=== PATIENT | female | born 1945 | race Caucasian/White ===

== ENCOUNTER 2017-07-16 17:36 | Emergency (ER) | payer MEDICARE ==
[2017-07-16 20:17] LABS: BASOPHILS 0.2 % (0-2); EOSINOPHILS 0.2 % (0-7); HEMATOCRIT 35.9 % (36.0-48.0); HEMOGLOBIN 12.1 g/dL (12-16); IMMATURE GRANULOCYTES 0.2 % (0-5); MCH 28.3 pg (26.0-34.0); MCHC 33.7 g/dL (31.0-37.0); MCV 84.1 fL (80.0-100.0); MEAN PLATELET VOLUME 10.1 fL (7.4-10.4); MONOCYTES 4.9 % (2-11); NEUTROPHILS 68.5 % (40-80); PLATELET COUNT 316 10x3/uL (130-400); RBC 4.27 10x6/uL (4.00-5.40); RDW 12.9 % (11.5-14.5); WBC 12.7 10x3/uL (4.8-10.8)
[2017-07-16 20:34] LABS: ALBUMIN 3.3 g/dL (3.4-5.0); BILIRUBIN - TOTAL 0.39 mg/dL (0.2-1.3); CALCIUM 9.9 mg/dL (8.5-10.1); CARBON DIOXIDE 29.5 mmol/L (21.0-32.0); CREATININE - SERUM 1.8 mg/dL (0.6-1.3); POTASSIUM - SERUM 4.5 mmol/L (3.5-5.1); PROTEIN - SERUM 8.9 g/dL (6.4-8.2)
[2017-07-16 20:37] LABS: APPEARANCE CLOUDY (CLEAR); BILIRUBIN NEGATIVE (NEGATIVE); COLOR YELLOW (YELLOW); GLUCOSE 1000 mg/dL (NEGATIVE); KETONE NEGATIVE (NEGATIVE); NITRITE POSITIVE (NEGATIVE); PROTEIN 2+ mg/dL (NEGATIVE); SPECIFIC GRAVITY 1.005 (1.005-1.020); UROBILINOGEN NORMAL (NORMAL)
[2017-07-16 20:41] LABS: BACTERIA MANY /hpf (NONE SEEN); RED CELLS - URINE 0-5 /hpf (0-5); WHITE CELLS - URINE 0-5 /hpf (0-5)
[2017-07-16 20:42] LABS: MAGNESIUM - SERUM 2.1 mg/dL (1.8-2.4)
[2017-07-16 20:43] LABS: AMORPHOUS SEDIMENT <1+ /lpf (NONE SEEN)
[2017-07-16 21:07] LABS: INR 1.07 (0.85-1.17); PROTIME 13.5 SECONDS (11.6-15.0)
== END 2017-07-17 01:45 | disposition home or self-care (01) ==
LOC: D.ER 17:36
PROVIDERS: Nurse Practitioner Family
DX: N39.0 Urinary tract infection, site not specified (principal); K92.1 Melena; Z93.3 Colostomy status; Z86.73 Personal history of transient ischemic attack (TIA), and cerebral infarction without residual deficits; E11.9 Type 2 diabetes mellitus without complications; I10 Essential (primary) hypertension; K21.9 Gastro-esophageal reflux disease without esophagitis

== ENCOUNTER → 2018-07-06 12:56 | Outpatient (CLI) | payer MEDICARE ==
--- NOTE | ~2018-07-06 | HEMODYNAMI ---
PATIENT:SANGITA FERRARI MEDICAL RECORD: [id number] : 41 LOCATION:[id number] ADMISSION DATE: 07/06/18 Generatedon:07/06/201814:26 Patient name: SANGITA FERRARI Patient #: [id number] SSN: DO B: 1945 Date of study: 07/06/2018 Page: Of Hemodynamic Procedure Report Patient Data Patient Demographics Procedure consent was obtained First Name: SANGITA Gender: Female Last Name: VEGA : 1945 Patient #: [id number] Age: 72 year(s) Race: Unknown Additional ID: [id number] Contact details Address: [facility] [address] State: [place] City: [place] Zip code: [address] Admission Admission Data Admission Date: 07/06/2018 Admission Time: 12:56 Procedure Procedure Types Cath Procedure Peripheral Cath Diagnostic Procedure Lead Pressman Peripheral Procedures Gastric G Tube Replacement Procedure Description Procedure Date Procedure Date: 07/06/2018 Procedure Start Time: 13:47 Procedure Staff Name Function Prasanna Lopez MD Performing Physician Shelby Ordoñez RT Clinical Statistics Manager Emy Sen RN Nurse Trista Hernández RN Nurse Robert Borjas RT Scrub Procedure Data Cath Procedure Fluoroscopy Diagnostic fluoroscopy Total fluoroscopy Time: 1.3 time: 1.3 min min Diagnostic fluoroscopy Total fluoroscopy dose: 44 dose: 44 mGy mGy Contrast Material Contrast Material Type Amount (ml) Isovue 300 15 Diagnostic catheters Device Type Used For End Catheter Placement Merit Impress KA 2 5Fr 40CM catheter ([id number]) Hemodynamics Rest Pre Cath Intra NCS Post Cath Procedure Log Time Note 13:39:12 Time tracking: Regular hours (M-F 7:00 - 5:00) 13:39:45 Use device set IR Diagnostic 13:39:49 Sterile Angiographic Pack opened to sterile field. 13:39:50 Bag Decanter () opened to sterile field. 13:40:02 A Merit Impress KA 2 5Fr 40CM catheter ([id number]) was advanced over the wire and used for . 13:40:17 Plan of Care:Hemodynamics will remain stable., Cardiac rhythm will remain stable., Comfort level will be maintained., Respiratory function will remain adequate., Patient/ family verbilizes understanding of procedure., Procedure tolerated without complication., Recovers from procedure without complications.. 13:40:26 Patient received from Other to IR Alert and oriented. Tansferred to table in Supine position. 13:40:32 Signed procedure consent form obtained from guardian. 13:40:35 - 13:40:39 Family in waiting room. 13:41:44 Left abdomen area was prepped with chlora-prep and draped in sterile fashion 13:46:51 Physician arrived 13:46:52 --------ALL STOP TIME OUT------ 13:46:52 Final Timeout: patient, procedure, and site verified with staff and physician. All members of the team are in agreement. 13:47:10 Procedure started. 13:47:10 Full Disclosure recording started 13:47:17 Local anesthetic to Abdominal area with Lidocaine 1% by Prasanna Lopez MD.INITIAL ACCESS ONLY 14:03:20 AMPLATZ Super stiff 180cm wire ([id number]) opened to sterile field. 14:03:42 GASTROSTOMY 18Fr Tri-Funnel Tube ([id number]) opened to sterile field. 14:05:18 PEEL-A-WAY INTRODUCER 18 FR opened to sterile field. 14:10:36 Procedure ended.(Physican Out) 14:11:28 Fluoroscopy time 01.30 minutes. 14:11:31 Fluoroscopy dose: 44 mGy 14:11:31 Flurop Dose total: 44 14:25:34 Contrast amount:Isovue 300 15ml. 14:25:52 Procedure and supply charges have been captured, reviewed, submitted an d are correct. 14:25:59 Patient transfered to Other with Wheelchair. Device Usage Item Name Manufacture Quantity Catalog Hospital Part Current Minimal Lot# / Number Charge Number Stock Stock Serial# Code Sterile Cardinal 1 [id number] 5 Angiographic Health Pack Bag Decanter Microtek 1 [id number] [id number] 5 () [employer] Merit Merit 1 [id number] [id number] 5 Impress KA 2 Medical 5Fr 40CM catheter ([id number]) AMPLATZ [place] 1 [id number] 103734 779649 5 Super stiff Scientific 180cm wire ([id number]) GASTROSTOMY Bard 1 [id number] 142475 196664 5 18Fr Tri-Funnel Tube ([id number]) PEEL-A-WAY [facility] 1 [id number] [id number] [id number] [id number] 1 INTRODUCER 18 FR Signature Audit [place] Stage Time Signature Unsigned Intra-Procedure 07/06/2018 Shelby Ordoñez 2:26:13 PM RT(R) [facility] [address] [place] [address]
== END | disposition home or self-care (01) ==
LOC: D.SP 12:56
DX: I69.321 Dysphasia following cerebral infarction (principal)